=== PATIENT | male | born 1970 | race African-American/Black ===

== ENCOUNTER 2016-07-29 10:00 | Emergency (ER) | payer SELFPAY ==
[2016-07-29] MEDS ORDERED: ASPIRIN 81 MG TABLET, CHEWABLE PO ONE (10:12)
--- NOTE | 2016-07-29 10:17 | ER Document Report ---
ED Medical Screen (RME) - General Stated Complaint: CHEST PAIN Mode of Arrival: Ambulatory Information source: Patient Notes: 46 y/o M presents to ED c/o intermittently persistent left upper chest pain over the last 2 days. Reports pain is worse when laying on left side or deep breathing. Denies fever or sob. I have greeted and performed a rapid initial assessment of this patient. A comprehensive ED assessment and evaluation of the patient, analysis of test results and completion of the medical decision making process will be conducted by additional ED providers. TRAVEL OUTSIDE OF THE [place] IN LAST 30 DAYS: No - Related Data Allergies/Adverse Reactions: No Known Allergies Allergy (Verified 07/29/16 10:12) Past Medical History - Immunizations Hx Diphtheria, Pertussis, Tetanus Vaccination: Yes Physical Exam - General General appearance: Appears well, Alert In distress: None - Respiratory Respiratory status: No respiratory distress Breath sounds: Normal - Cardiovascular Pulses: Normal: Radial
[2016-07-29 10:59] LABS: ABSOLUTE EOSINOPHILS # (AUTO) 0.1 10^3/uL (0.0-0.6); ABSOLUTE LYMPHOCYTES (AUTO) 1.8 10^3/uL (0.5-4.7); ABSOLUTE MONOCYTES (AUTO) 0.4 10^3/uL (0.1-1.4); ABSOLUTE NEUT (AUTO) 3.8 10^3/uL (1.7-8.2); BASOPHILS % (AUTO) 0.7 % (0-2); EOSINOPHILS % (AUTO) 1.2 % (0-6); HEMATOCRIT 47.5 % (37.9-51.0); HEMOGLOBIN 15.9 g/dL (13.5-17.0); HGB HCT DIFFERENCE 0.2; LYMPHOCYTES % (AUTO) 29.6 % (13-45); MEAN CORPUSCULAR HEMOGLOBIN 27.7 pg (27.0-33.4); MEAN CORPUSCULAR HGB CONC 33.5 g/dL (32.0-36.0); MEAN CORPUSCULAR VOLUME 83 fl (80-97); MONOCYTES % (AUTO) 6.6 % (3-13); RED BLOOD COUNT 5.74 10^6/uL (4.35-5.55); RED CELL DISTRIBUTION WIDTH 14.3 % (11.5-14.0); SEGMENTED NEUTROPHILS % (AUTO) 61.9 % (42-78); WHITE BLOOD COUNT 6.1 10^3/uL (4.0-10.5)
[2016-07-29 11:21] LABS: ALANINE AMINOTRANSFERASE 47 U/L (21-72); ALBUMIN 4.4 g/dL (3.5-5.0); ALKALINE PHOSPHATASE 91 U/L (38-126); ANION GAP 12 (5-19); ASPARTATE AMINO TRANSFERASE 24 U/L (17-59); BILIRUBIN,TOTAL 0.6 mg/dL (0.2-1.3); BLOOD UREA NITROGEN 14 mg/dL (7-20); CALCIUM 9.7 mg/dL (8.4-10.2); CARBON DIOXIDE 26 mmol/L (22-30); CHLORIDE 107 mmol/L (98-107); CREATINE KINASE 117 U/L (55-170); CREATININE RESULT 0.91 mg/dL (0.52-1.25); GLUCOSE 100 mg/dL (75-110); SODIUM 145.3 mmol/L (137-145); TOTAL PROTEIN 7.3 g/dL (6.3-8.2)
--- NOTE | 2016-07-29 11:35 | EKG REPORT ---
SEVERITY:- ABNORMAL ECG - SINUS RHYTHM LEFT ANTERIOR FASCICULAR BLOCK CONSIDER RIGHT VENTRICULAR HYPERTROPHY : Confirmed by: Bernardino Billings 29-Jul-2016 11:34:36
[2016-07-29 11:36] LABS: CREATINE KINASE MB 0.28 ng/mL (<4.55); TROPONIN I < 0.012 ng/mL
[2016-07-29] MEDS ORDERED: KETOROLAC TROMETHAMINE INJ/PF 30 MG/1 ML SDV IV ONE (12:36)
--- NOTE | 2016-07-29 12:43 | ER Document Report ---
ED General - General Chief Complaint: Chest Pain > 30 Stated Complaint: CHEST PAIN Mode of Arrival: Ambulatory TRAVEL OUTSIDE OF THE [place] IN LAST 30 DAYS: No - HPI Patient complains to provider of: chest pain Notes: Patient coming in today for chest pain. Patient states ongoing for last 3 days intermittent patient states pain is underneath the rib cage sharpshooting going from sternum across his chest. Patient denies any shortness of breath denies any fever chills nausea vomiting diarrhea states pain on her last for a few seconds at a time. Denies any recent trauma or travel. Patient denies any new physical activity. - Related Data Allergies/Adverse Reactions: No Known Allergies Allergy (Verified 07/29/16 10:12) Past Medical History - General Information source: Patient - Social History Smoking Status: Never Smoker Chew tobacco use (# tins/day): No Frequency of alcohol use: None Drug Abuse: None Family History: Reviewed & Not Pertinent Patient has suicidal ideation: No Patient has homicidal ideation: No Renal/ Medical History: Denies: Hx Peritoneal Dialysis Surgical Hx: Negative - Immunizations Hx Diphtheria, Pertussis, Tetanus Vaccination: Yes Review of Systems - Review of Systems Constitutional: No symptoms reported EENT: No symptoms reported Cardiovascular: Chest pain Respiratory: No symptoms reported Gastrointestinal: No symptoms reported Genitourinary: No symptoms reported Male Genitourinary: No symptoms reported Musculoskeletal: No symptoms reported Skin: No symptoms reported Hematologic/Lymphatic: No symptoms reported Neurological/Psychological: No symptoms reported -: Yes All other systems reviewed and negative Physical Exam - Vital signs Vitals: Temp Pulse Resp BP Pulse Ox 97.6 F 79 20 121/69 97 07/29/16 10:16 07/29/16 10:16 07/29/16 10:16 07/29/16 10:16 07/29/16 10:16 Interpretation: Normal - General General appearance: Appears well, Alert - HEENT Head: Normocephalic, Atraumatic Eyes: Normal Pupils: PERRL - Respiratory Respiratory status: No respiratory distress Chest status: Nontender Breath sounds: Normal Chest palpation: Normal - Cardiovascular Rhythm: Regular Heart sounds: Normal auscultation Murmur: No - Abdominal Inspection: Normal Distension: No distension Bowel sounds: Normal Tenderness: Nontender Organomegaly: No organomegaly - Back Back: Normal, Nontender - Extremities General upper extremity: Normal inspection, Nontender, Normal color, Normal ROM , Normal temperature General lower extremity: Normal inspection, Nontender, Normal color, Normal ROM , Normal temperature, Normal weight bearing. No: Radha's sign - Neurological Neuro grossly intact: Yes Cognition: Normal Orientation: AAOx4 [place] Coma Scale Eye Opening: Spontaneous [place] Coma Scale Verbal: Oriented [place] Coma Scale Motor: Obeys Commands [place] Coma Scale Total: 15 Speech: Normal Motor strength normal: LUE, RUE, LLE, RLE Sensory: Normal - Psychological Associated symptoms: Normal affect, Normal mood - Skin Skin Temperature: Warm Skin Moisture: Dry Skin Color: Normal Course - Re-evaluation Re-evalutation: 07/29/16 19:03 Patient EKG lab work chest x-ray showed no clear etiology for patient's symptoms. Patient's troponin is negative patient's symptoms are not consistent with any acute coronary syndrome. More likely due to elevated sodium possibly intercostal spasm from dehydration. Patient will be discharged home. - Vital Signs Vital signs: Temp Pulse Resp BP Pulse Ox 98.2 F 70 16 114/90 H 96 07/29/16 12:50 07/29/16 12:50 07/29/16 12:50 07/29/16 12:50 07/29/16 12:50 - Laboratory Result Diagrams: 07/29/16 10:33 07/29/16 10:33 Laboratory results interpreted by me: 07/29/16 07/29/16 10:33 10:33 RBC 5.74 H RDW 14.3 H Sodium 145.3 H Discharge - Discharge Clinical Impression: Chest wall pain Condition: Good Disposition: HOME, SELF-CARE Instructions: Anti-Inflammatory Medication ([facility]), Chest Wall Pain ([facility]), Chest Pain of Unclear Cause ([facility]), Family Physicians / Practices Additional Instructions: Follow-up with your primary care physician. Return to ER symptoms worsen. Take medications as prescribed. Your workup today shows no abnormalities on EKG negative laboratory studies no abnormalities your chest x-ray. I believe that your symptoms may be related to dehydration. I do believe you are having chest wall pain or intercostal spasms. To Treat this we normally give you anti-inflammatories. Please follow- up with a physician or physician listed. Prescriptions: Ibuprofen [Motrin 600 Mg Tablet] 600 mg PO TID #30 tablet Forms: Return to Work
[2016-07-29 12:56] VITALS: BP 114/90
== END 2016-07-29 13:00 | disposition home or self-care (01) ==
LOC: ER 10:00
DX: R07.89 Other chest pain (principal)
CPT/HCPCS: 93005; 99285; 96374; 36415; 82553; 82550; 85025; 80053; 84484; 85379; 71020; 93010; J1885

== ENCOUNTER 2017-05-19 02:30 | Emergency (ER) | payer SELFPAY ==
[2017-05-19 02:37] VITALS: BP 125/81
--- NOTE | 2017-05-19 02:37 | ER Document Report ---
ED GI Bleed / Rectal Pain - General Chief Complaint: Bloody Stools Stated Complaint: BLOOD IN STOOL Time Seen by Provider: 05/19/17 02:35 Notes: The patient is a 47-year-old male who presents after he noticed blood coating his stools and rectal pain after having 2 hard bowel movements. He had a colonoscopy 2 months ago, which she said was normal. He denies recent travel, fevers, abdominal pain, nausea, vomiting, chest pain, lightheadedness or syncope. TRAVEL OUTSIDE OF THE [place] IN LAST 30 DAYS: No - Related Data Allergies/Adverse Reactions: No Known Allergies Allergy (Verified 05/19/17 02:33) Past Medical History - General Information source: Patient - Social History Smoking Status: Unknown if Ever Smoked Family History: denies: Arthritis, CAD, COPD, CVA, DM, Hyperlipidemia, Hypertension, Malignancy, Thyroid Disfunction - Past Medical History Cardiac Medical History: Denies: Hx Hypercholesterolemia, Hx Hypertension Pulmonary Medical History: Denies: Hx Asthma, Hx Bronchitis, Hx COPD, Hx Pneumonia Renal/ Medical History: Denies: Hx Peritoneal Dialysis - Immunizations Hx Diphtheria, Pertussis, Tetanus Vaccination: Yes Review of Systems - Review of Systems Notes: REVIEW OF SYSTEMS: CONSTITUTIONAL: -fevers, -chills EENT: -eye pain, -difficulty swallowing, -nasal congestion CARDIOVASCULAR:-chest pain, -syncope. RESPIRATORY: -cough, -SOB GASTROINTESTINAL: -abdominal pain, - nausea, -vomiting, -diarrhea, +rectal pain GENITOURINARY: -dysuria, -hematuria MUSCULOSKELETAL: -back pain, -neck pain SKIN: -rash or skin lesions. HEMATOLOGIC: -easy bruising or bleeding. LYMPHATIC: -swollen, enlarged glands. NEUROLOGICAL: -altered mental status or loss of consciousness, -headache, - neurologic symptoms PSYCHIATRIC: -anxiety, -depression. ALL OTHER SYSTEMS REVIEWED AND NEGATIVE. Physical Exam - Vital signs Vitals: Temp Pulse Resp BP Pulse Ox 98.8 F 73 20 125/81 96 05/19/17 02:34 05/19/17 02:34 05/19/17 02:34 05/19/17 02:34 05/19/17 02:34 - Notes Notes: PHYSICAL EXAMINATION: GENERAL: Well-appearing, well-nourished and in no acute distress. HEAD: Atraumatic, normocephalic. EYES: Pupils equal round and reactive to light, extraocular movements intact, sclera anicteric, conjunctiva are normal. ENT: nares patent, oropharynx clear without exudates. Moist mucous membranes. NECK: Normal range of motion, supple without lymphadenopathy LUNGS: Breath sounds clear to auscultation bilaterally and equal. No wheezes rales or rhonchi. HEART: Regular rate and rhythm without murmurs ABDOMEN: Soft, nontender, normoactive bowel sounds. No guarding, no rebound. No masses appreciated. RECTAL: Single non-thrombosed, non-bleeding external hemorrhoid. Brown stool. EXTREMITIES: Normal range of motion, no pitting or edema. No cyanosis. NEUROLOGICAL: Cranial nerves grossly intact. Normal speech, normal gait. Normal sensory and motor exams. PSYCH: Normal mood, normal affect. SKIN: Warm, Dry, normal turgor, no rashes or lesions noted. Course - Re-evaluation Re-evalutation: Patient has a single nonthrombosed and nonbleeding external hemorrhoid that is causing his rectal pain and small amount of blood coating his stool. His vital signs are normal and he is having no near syncopal symptoms. Patient does not require blood work at this time. Instructed him about symptomatic treatment of his hemorrhoid and he understands. Will have him follow-up with the GI doctor. Given strict return precautions and he understands. - Vital Signs Vital signs: Temp Pulse Resp BP Pulse Ox 98.8 F 73 20 125/81 96 05/19/17 02:34 05/19/17 02:34 05/19/17 02:34 05/19/17 02:34 05/19/17 02:34 Discharge - Discharge Clinical Impression: External hemorrhoids without complication Condition: Good Disposition: HOME, SELF-CARE Additional Instructions: Hemorrhoids You have hemorrhoids. These are formed by enlargement of veins around the anus. The cause is increased pressure in the veins, from or straining at bowel movements. Hemorrhoids often cause itching and bleeding with bowel movements. When a hemorrhoid becomes clotted, severe pain and swelling result. Soothing creams and suppositories are often used. Warm sitz-baths may also decrease pain, swelling, and itching. Eat a high-fiber diet. Stool softeners such as Metamucil will help. Keep the area very clean. Medicated cleansing pads (such as Tucks) are useful after bowel movements. A hose-mounted shower unit (like a shower massager at low water pressure) can be used to clean around tender hemorrhoid tags. You should call the doctor or return if you develop fever, increasing pain , or an enlarging mass around the anus, or if you simply fail to improve with treatment. Referrals: ANNA ZAPATA MD [ACTIVE STAFF] - Follow up as needed
== END 2017-05-19 02:50 | disposition home or self-care (01) ==
LOC: ER 02:30
DX: K62.89 Other specified diseases of anus and rectum (principal); K64.4 Residual hemorrhoidal skin tags
CPT/HCPCS: 99282